=== PATIENT | female | born 1945 | race Caucasian/White ===

== ENCOUNTER → 2017-01-05 10:16 | Outpatient (CLI) | payer MEDICARE, OTHER | END | disposition home or self-care (01) | LOC: D.CT 10:16 | DX: R05 Cough (principal) ==

== ENCOUNTER → 2017-01-22 08:46 | Outpatient (CLI) | payer MEDICARE, OTHER | END | disposition home or self-care (01) | LOC: D.RT 01-18 14:00 | DX: J44.9 Chronic obstructive pulmonary disease, unspecified (principal) ==